=== PATIENT | female | born 1940 | race Caucasian/White ===

== ENCOUNTER 2019-04-02 23:59 | Emergency (ER) | payer MEDICARE ==
[~2019-04-02] VITALS: Ht 162.6 cm; Wt 68.0 kg
[~2019-04-02 23:59] MED LIST: ALBUTEROL0.5 % IN; ASPIRIN81 MG OR; CELEBREX200 MG OR; MICARDIS80 MG PO; OS-CAL 500500 MG OR; PROAIR HFA IN; VITAMI18 OR; VYTORIN 10/401 TAB OR; ZITHROMAX250 MG OR
[2019-04-03] MEDS ORDERED: MELOXICAM15 MG PO (00:52)
[2019-04-03] MEDS ORDERED: MINOCYCLINE100 MG PO (00:53)
[2019-04-03] MEDS ORDERED: NORVASC5 M1 PO (00:53)
[2019-04-03] MEDS ORDERED: BACTRIM DS1 TAB PO (01:20)
[2019-04-03 01:25] VITALS: BP 140/80
== END 2019-04-03 01:27 | disposition home or self-care (01) ==
LOC: ED 23:59
DX: T63.421A Toxic effect of venom of ants, accidental (unintentional), initial encounter (principal); L08.9 Local infection of the skin and subcutaneous tissue, unspecified; I10 Essential (primary) hypertension

== ENCOUNTER 2019-09-05 | Emergency (ER) | payer MEDICARE ==
[~2019-09-05] MED LIST changes: +BACTRIM DS1 TAB PO; +MELOXICAM15 MG PO; +MINOCYCLINE100 MG PO; +NORVASC5 M1 PO
[2019-09-05 18:33] LABS: HEMATOCRIT 39.6 % (37.0-47.0); HEMOGLOBIN 12.9 g/dl (12.0-16.0); IMMATURE GRANULOCYTES 0.4 % (0.0-5.0); MEAN CELL VOLUME 86.1 fL CALC (80.0-100.0); MEAN CORPUSCULAR HGB CONC 32.6 g/L CALC (32.0-36.0); NEUT# 7.65 thou/uL (2.00-7.15); RED BLOOD COUNT 4.6 mill/uL (4.20-5.60); RED CELL DISTRI WIDTH 13.1 % (11.5-15.5)
[2019-09-05 18:51] LABS: ALBUMIN 4.6 g/dL (3.2-5.0); AMYLASE 59 u/l (30-110); ANION GAP 13 (6-22 (CALC)); BUN 18 mg/dL (8-23); BUN/CREATININE RATIO 26 (12-20 (CALC)); CARBON DIOXIDE 30 mmol/l (22-30); CHLORIDE 101 mmol/l (95-108); CREATININE 0.7 mg/dL (0.5-1.0); GFR > 60 ML/MIN (>=60 (CALC)); GFR FOR AFR.AMER. > 60 ML/MIN (>=60 (CALC)); LIPASE 215 u/l (23-300); POTASSIUM 3.5 mmol/l (3.5-5.1); SODIUM 140 mmol/l (137-146); TOTAL PROTEIN 8.2 g/dL (6.3-8.2)
[2019-09-05 18:56] LABS: ALKALINE PHOSPHATASE 112 u/l (38-126); BILIRUBIN, TOTAL 1.6 mg/dL (0.0-1.4); SGOT/AST 109 u/l (9-36)
[2019-09-05 19:28] LABS: URINE BILIRUBIN - DIPSTICK NEGATIVE (NEGATIVE); URINE BLOOD DIPSTICK SMALL (NEGATIVE); URINE COLOR YELLOW; URINE GLUCOSE - DIPSTICK NEGATIVE (NEGATIVE); URINE KETONE NEGATIVE (NEGATIVE); URINE LEUK ESTERASE MODERATE (NEGATIVE); URINE NITRITE - DIPSTICK NEGATIVE (Negative); URINE PROTEIN - DIPSTICK NEGATIVE (NEG-TRACE); URINE UROBILINOGEN - DIPSTICK 0.2 E.U./dL (0.2)
[2019-09-05 19:34] LABS: URINE BACTERIA FEW hpf; URINE SQUAMOUS EPITHELIAL CELL FEW EPI/hpf (0-FEW)
[2019-09-05 19:35] LABS: URINE AMORPH SEDIMENT MODERATE hpf (NONE-FEW)
[2019-09-05] MEDS ORDERED: AMOX/K CLAV875 M1 PO (20:35)
== END 2019-09-05 21:14 | disposition left against medical advice (07) ==
DX: K80.20 Calculus of gallbladder without cholecystitis without obstruction (principal); N39.0 Urinary tract infection, site not specified; R74.8 Abnormal levels of other serum enzymes; I10 Essential (primary) hypertension; Z91.19 Patient's noncompliance with other medical treatment and regimen; B95.61 Methicillin susceptible Staphylococcus aureus infection as the cause of diseases classified elsewhere